=== PATIENT | female | born 1980 | race Caucasian/White ===

== ENCOUNTER → 2016-12-06 | Outpatient (CLI) | payer MEDICAID | LOC: MW.CHFP 14:31 | PROVIDERS: ATTEND Emergency Medicine | DX: R07.89 Other chest pain (principal) | CPT/HCPCS: 93005 ==

== ENCOUNTER 2017-10-28 07:12 | Day surgery (SDC) | payer MEDICAID ==
[~2017-10-28 07:12] MED LIST: Clindamycin Phosphate in D5W 900 MG in Premix Bag 1 BAG IV SCH; Levofloxacin/Dextrose 5%-Water 500 MG in Premix Bag 1 BAG IV ONE; Sodium Chloride 0.9% 10 ML Syringe FLUSH PRN; Sodium Chloride 0.9% 2.5 ML Syringe FLUSH PRN
[2017-10-28] MEDS ORDERED: Fluorescein 5 ML Vial ONE (07:18)
[2017-10-28] MEDS ORDERED: Bupivacaine 0.25% 10 ML SDV ONE (07:19)
[2017-10-28] MEDS ORDERED: Methylene Blue 50 MG/10 ML Ampule ONE (07:19)
[2017-10-28] MEDS ORDERED: Rocuronium 10 MG/ML 10 ML Syringe ONE (08:11)
[2017-10-28] MEDS ORDERED: diphenhydrAMINE 50 MG/ML SDV ONE (08:11)
[2017-10-28] MEDS ORDERED: Dexamethasone 4 MG/ML 5 ML MDV ONE (08:11)
[2017-10-28] MEDS ORDERED: HYDROmorphone 2 MG/ML SDV ONE (08:12)
[2017-10-28] MEDS ORDERED: fentaNYL 250 MCG/5 ML SDV ONE (08:12)
[2017-10-28] MEDS ORDERED: Lidocaine 2% 5 ML SDV ONE (08:12)
[2017-10-28] MEDS ORDERED: Midazolam 1 MG/ML 2 ML SDV ONE (08:12)
[2017-10-28] MEDS ORDERED: Propofol 200 MG/20 ML SDV ONE (08:12)
[2017-10-28] MEDS ORDERED: Scopolamine 1.5 MG Transdermal Patch TRDERM PRN (08:12)
--- NOTE | 2017-10-28 08:12 | PCM.PREANE ---
Preanesthetic Assessment - Anesthesia/Transfusion/Family Hx Anesthesia History: Prior Anesthesia Reaction (agitated upon awakening) Other Type of Anesthesia Reaction Comment: states very combative after Lap Agustina , [place] after Laparoscopy Family History of Anesthesia Reaction: No Transfusion History: No Prior Transfusion(s) Type of Transfusion Reactions: Reports: Unknown - Review of Systems General: No Symptoms Pulmonary: No Symptoms Cardiovascular: No Symptoms Gastrointestinal: No Symptoms Neurological: No Symptoms Other: Reports: None - Physical Assessment NPO Status Date: 10/27/17 Height: 1.62 m Weight: 102.058 kg ASA Class: 2 Mental Status: Alert & Oriented x3 Airway Class: Mallampati = 1 Dentition: Reports: Normal Dentition ROM/Head Extension: Full Lungs: Clear to Auscultation, Normal Respiratory Effort Cardiovascular: Regular Rate, Regular Rhythm - Allergies Allergies/Adverse Reactions: Allergies Allergy/AdvReac Type Severity Reaction Status Date / Time Penicillins Allergy Lightheaded Verified 10/23/17 11:47 ness - Anesthesia Plan Pre-Op Medication Ordered: Other (scop) - Acknowledgements Anesthesia Type Planned: General Anesthesia Pt an Appropriate Candidate for the Planned Anesthesia: Yes Alternatives and Risks of Anesthesia Discussed w Pt/Guardian: Yes Pt/Guardian Understands and Agrees with Anesthesia Plan: Yes PreAnesthesia Questionnaire HEENT History: Reports: Hard of Hearing Other HEENT History: 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: , Spontaneous Musculoskeletal History: Reports: Arthritis, Back Pain, Chronic Neurological History: Reports: Concussion, Migraines Other Neuro History: takes Verapamil for migranes Endocrine/Metabolic History: Reports: Obesity/BMI 30+ - Past Surgical History Head Surgeries/Procedures: Reports: None GI Surgical History: Reports: Cholecystectomy Female Surgical History: Reports: Cystectomy Other Female Surgeries/Procedures: laparoscopy with right ovarian cystectomy - SUBSTANCE USE Smoking Status *Q: Current Every Day Smoker Tobacco Use Within Last Twelve Months: Cigarettes Second Hand Smoke Exposure: Yes Days Per Week of Alcohol Use: 0 Recreational Drug Use History: No - HOME MEDS Home Medications: Home Meds Albuterol [Proair HFA] 2 puff INH Q4H PRN 10/23/17 [History] Ibuprofen 800 mg PO TID 10/23/17 [History] Iron 45 mg PO DAILY 10/23/17 [History] Omeprazole 20 mg PO DAILY PRN 10/23/17 [History] Sucralfate [Carafate] 1 gm PO QID PRN 10/23/17 [History] Verapamil [Calan] 120 mg PO TID PRN 10/23/17 [History] - CURRENT (IN HOUSE) MEDS Current Meds: Current Medications Enoxaparin Sodium (Lovenox) 40 mg SUBCUT Q24H ROYAL Clindamycin Phosphate 900 mg/ (Premix) 50 mls @ 89.286 mls/hr IV ONETIME ROYAL Sodium Chloride (Saline Flush) 10 ml FLUSH ASDIRECTED PRN PRN Reason: Keep Vein Open Sodium Chloride (Saline Flush) 2.5 ml FLUSH ASDIRECTED PRN PRN Reason: Keep Vein Open Discontinued Medications Bupivacaine HCl (Sensorcaine-Mpf 0.25%) Confirm Administered Dose 30 ml .ROUTE .STK-MED ONE Stop: 10/28/17 07:20 Fluorescein Sodium (Ak-Fluor) Confirm Administered Dose 5 ml .ROUTE .STK-MED ONE Stop: 10/28/17 07:19 Levofloxacin/Dextrose 500 mg/ (Premix) 100 mls @ 100 mls/hr IV ONETIME ONE Stop: 10/28/17 05:59 Methylene Blue (Provayblue) Confirm Administered Dose 50 mg .ROUTE .STK-MED ONE Stop: 10/28/17 07:20
[2017-10-28] MEDS: Enoxaparin 40 MG/0.4 ML Syringe SUBCUT SCH (08:35)
[2017-10-28] MEDS ORDERED: Levofloxacin/Dextrose 5%-Water 500 MG in Premix Bag 1 BAG IV ONE (08:45)
[2017-10-28 08:56] LABS: CHLORIDE,CL 106 mmol/L (98-107); SODIUM,NA 140 mmol/L (136-145)
[2017-10-28] MEDS: Lactated Ringers 1,000 ML IV SCH ×2 (09:24→13:08)
[2017-10-28] MEDS ORDERED: Furosemide 40 MG/4 ML VIAL ONE (10:15)
[2017-10-28] MEDS ORDERED: Glycopyrrolate 0.2 MG/ML SDV ONE ×2 (10:16→11:14)
[2017-10-28] MEDS ORDERED: Neostigmine Methylsulfate 1 MG/ML 5 ML Syringe ONE (10:16)
[2017-10-28] MEDS ORDERED: ePHEDrine 50 MG/ML SDV ONE (10:45)
[2017-10-28] MEDS ORDERED: Ondansetron 4 MG/2 ML SDV ONE (11:13)
[2017-10-28] MEDS ORDERED: Acetaminophen/oxyCODONE 325-5 MG Tab PO PRN ×2 (11:34)
[2017-10-28] MEDS ORDERED: Belladonna Alkaloids/Opium 16.2-30 MG Supp RECTAL PRN (11:34)
[2017-10-28] MEDS ORDERED: Ondansetron 4 MG/2 ML SDV IVPUSH PRN (11:34)
[2017-10-28] MEDS ORDERED: Simethicone 80 MG Tab.Chew PO PRN (11:34)
[2017-10-28] MEDS ORDERED: Promethazine 25 MG/ML SDV IM PRN (11:34)
[2017-10-28] MEDS ORDERED: Morphine 2 MG/ML Syringe IVPUSH PRN (11:34)
[2017-10-28] MEDS ORDERED: Morphine 4 MG/ML Syringe IVPUSH PRN (11:34)
[2017-10-28] MEDS ORDERED: Aluminum Hydroxide/Magnesium Hydroxide/Simethicone Susp 30 ML Cup PO PRN (11:34)
--- NOTE | 2017-10-28 12:03 | PCM.OPNOTE ---
- General Post-Op/Procedure Note Date of Surgery/Procedure: 10/28/17 Operative Procedure(s): LAVH/bilateral salpingectomy/right oophorectomy/ cystoscopy/pelvic washings Findings: Enlarged uterus measuring approximately 10 week, distended right ovary with approximately 4-5 cm cyst. Left paratubal cyst. Bilateral patent ureters with cysto Pre Op Diagnosis: Menometrorrhagia with anemia. Right ovarian cyst Post-Op Diagnosis: Same Anesthesia Technique: General ET Tube Primary Surgeon: Leatha Schumacher Room Service Runner: Letitia Burton Pathology: uterus, tubes, right ovary Fluid Replacement, Intraop: 2,400 EBL in mLs: 100 Complications: none known Condition: Good Free Text/Narrative:: [id number]
--- NOTE | 2017-10-28 12:53 | PCM.POSTAN ---
POST ANESTHESIA ASSESSMENT - MENTAL STATUS Mental Status: Alert, Oriented - RESPIRATORY Respiratory Status: Respiratory Rate WNL, Airway Patent, O2 Saturation Stable - CARDIOVASCULAR CV Status: Pulse Rate WNL, Blood Pressure Stable - GASTROINTESTINAL GI Status: No Symptoms - POST OP HYDRATION Hydration Status: Adequate & Stable
--- NOTE | 2017-10-28 18:49 | OR ---
SURGEON: Leatha Schumacehr M.D. DATE OF PROCEDURE: 10/28/2017 PREOPERATIVE DIAGNOSES: 1. Menometrorrhagia. 2. Right ovarian cyst. 3. History of iron-deficiency anemia. POSTOPERATIVE DIAGNOSES: 1. Menometrorrhagia. 2. Right ovarian cyst. 3. History of iron-deficiency anemia. PROCEDURES: Laparoscopic-assisted vaginal hysterectomy, bilateral salpingectomy, right oophorectomy, cystoscopy with pelvic washings. WIRE TAPER: Letitia Burton MD ANESTHESIA: General endotracheal anesthesia. FLUIDS: 2400 mL crystalloid. ESTIMATED BLOOD LOSS: 100 mL. COMPLICATIONS: None known. FINDINGS: Approximately 10-week size uterus, boggy. Distended right ovary with approximately 4 to 5 cm cyst. Left paratubal cyst with cystoscopy at the end the procedure. Bilateral patent ureters noted. DISPOSITION: The patient to PACU, stable. SPECIMEN: Pathology. PROCEDURE IN DETAIL: Amarilys Velasco is a 37-year-old female, who has had ongoing difficulties with menometrorrhagia to the point of having anemia with hemoglobin of approximately 8. She subsequently has been on iron therapy, complicating her history, has history of a pelvic left femoral DVT during her last . The patient has again been experiencing some right leg pain and with imaging study, she was found to have approximately 5 cm right ovarian cyst, which most likely cause her pain. Dopplers of the lower extremities and pelvis were performed with no evidence of DVT. At this juncture, the patient would like to proceed with definitive surgical intervention in the form of hysterectomy and with the recurrence of ovarian cyst, she would like to have both her fallopian tubes removed. She is willing to maintain the left ovary. Findings appears normal at time of surgery as this will give her adequate hormone supplementation, especially given history of DVT that hormone therapy will be difficult treatment option for her. Proper consent obtained. The patient was taken to operating room, where she underwent general endotracheal anesthesia. The patient was placed in modified dorsal position, prepped and draped in the usual sterile fashion. SCDs to the lower extremities. Medeiros to gravity. Received Lovenox prophylactically, and clindamycin and Levaquin prophylactically. Time-out was performed. A speculum was introduced in the vagina. Anterior lip of the cervix was grasped with an Allis clamp. HUMI uterine manipulator was gently placed. Balloon insufflated. All instruments were benign except for the Humberto uterine manipulator. Gloves changed. Attention turned abdominally. Infraumbilically, the patient has had previous laparoscopy; therefore, the region was prepped with 0.25% Marcaine. A 7 mm skin incision was created and a subcutaneous tissue was dissected down to the level of the fascia with the hemostats grasped, the fascia was grasped and entered sharply as well as peritoneum. Trocar was now introduced and pneumoperitoneum was achieved, and the edges of the fascia were secured with 0 Vicryl. Laparoscope was introduced. Peritoneal contents were identified. A left lower quadrant and right lower quadrant 5 mm trocar were placed after prepping the regions with 0.25% Marcaine and creating 5 mm skin incision. The uterus was mobile. There is a right ovarian cyst, now approximately 4 to 5 cm. The pelvic sidewalls on either side inspected, and the ureters were visualized to be placed away from the region of the operative field. Pelvic washings obtained with normal saline. Attention was now turned to performing the left salpingectomy. The fallopian tube is isolated and grasped, tented upwards. Using the LigaSure, salpingectomy was performed to the level of the cornua. At this juncture, it was able to create an utero-ovarian pedicle followed by securing the areas of the broad ligament, mid midportion of the broad ligament including the round ligament, lower portion of broad ligament down to the level of the cardinal ligament. This was able to create a bladder flap, and mobilized the bladder away from the lower uterine segment and cervix. Remainder of the cardinal ligament on this side was now secured with ligature, cauterized and transected down to the level of the uterosacral ligament. Attention was now turned to the patient's right side. The IFP pedicle was isolated with LigaSure, cauterized and transected. Continued to work towards the medial leaf of the broad ligament. Upper portion was safely secured with ligature, cauterized and transected, followed by the midportion including round ligament, lower base of the broad ligament to the level of the cardinal ligament. Bladder flap was created, was completed on this side. The cardinal ligament had been secured, cauterized and transected with two bites down to the level of the uterosacral ligament. Hydrodissection of the bladder peritoneum was performed, who continued to mobilize the bladder away from the lower uterine segment and cervix. At this point, I felt that adequate dissection had occurred prior to securing the pedicles. The pneumoperitoneum was released. Laparoscopic instruments removed. Attention turned vaginally. The legs and knees were slightly flexed. Weighted speculum was introduced in the vagina. Anterior Dalila, cervix grasped with Paulina clamp and sidewall retractors were placed. The cervix now circumscribed Bovie cautery anteriorly and posteriorly as well as side of the cervical mucosa was dissected away from underlying peritoneum. Posteriorly, the peritoneum was tented downward and entered sharply. A longer weighted speculum was replaced with the shorter. Anteriorly, peritoneum was tented upwards and entered sharply into the anterior cul-de-sac. A Bynum was placed to mobilize the bladder away from the operative field. The pedicle on either side was secured using a Humberto clamp, and incorporating the uterosacral ligament, transected and suture ligated with 2-0 Vicryl. Further pedicle on either side was able to be secured and transected with a curved Humberto clamp, transected, and suture ligated. The uterus fallopian tubes, and right ovary were now able to be removed, sent to Pathology for further analysis. The pedicles are inspected. Area of bleeding along the right upper pedicle was able to be secured with Berlisher clamp and [id number] suture. The posterior cuff was oozing somewhat. The patient did receive Lovenox prophylactically; therefore, after securing the uterosacral ligament to the vaginal cuff on either side, also did a running posterior suture with 2-0 Vicryl incorporating the left uterosacral ligament running along the posterior peritoneum to the level of the right uterosacral ligament and then tying the sutures down. The cuff is able to be closed using 0 Vicryl in continuous running locked fashion. The cuff was inspected and found to be hemostatic. The bladder had been released and Medeiros catheter balloon was deflated. The patient had received IV fluorescein and Lasix. The cystoscope was now prepped and introduced in the bladder after removing the catheter. Using normal saline for distention media was able to visualize the dome of the bladder, followed by the trigone of the right ureteral orifice followed by the left ureteral orifice were able to be visualized. Fluorescein dyed urine was seen streaming from them, helping to ensure ureteral patency. The bladder was now drained. Medeiros catheter was replaced. The vaginal cuff once again was inspected and found to be hemostatic. All instruments removed from the vagina. The gloves were changed and attention turned abdominally. Pneumoperitoneum was once again achieved. The laparoscope was reintroduced. The pedicles were closely inspected, well irrigated, and suction dried. The pedicles appeared hemostatic. The pneumoperitoneum was released down to 5 mm, contained inspected pedicles, once again they appeared hemostatic. The pelvis was copiously irrigated, suction dried, and pneumoperitoneum was released. The laparoscopic instruments were removed under direct visualization followed by the right and left quadrant trocars. The laparoscopic infraumbilical trocar was also removed after releasing as much of the pneumoperitoneum as possible. The infraumbilical fascia was closed using 0 Vicryl, and skin edges are closed using 3-0 Monocryl in subcuticular fashion. Sponge, instrument, and needle counts correct x2. The patient have tolerated this procedure well overall. She will go to PACU in stable condition. ELLIE SINGH /[id number] MTDOtis
--- NOTE | 2017-10-28 19:32 | PCM.SN ---
- Free Text/Narrative Note: Pain is well controlled overall--was feeling quite nauseated earlier, but this seems to be improving. Urine output has been just adequate. VS are overall stable. Explained intraoperative findings and procedure. Patient would like catheter out this evening, agreed as long as urine output remains adequate the next couple hours. Abdomen is soft, relatively nontender. Trace pedal edema noted. No CVA tenderness. Continue postoperative cares, labs in the morning.
[2017-10-28] MEDS: Docusate Sodium 100 MG Cap PO SCH (21:10)
[2017-10-28] MEDS: Acetaminophen 500 MG Tab PO PRN (21:10)
[2017-10-29] MEDS: Acetaminophen 500 MG Tab PO PRN (03:22)
[2017-10-29] MEDS: Enoxaparin 40 MG/0.4 ML Syringe SUBCUT SCH (06:00)
[2017-10-29 06:45] LABS: CHLORIDE,CL 105 mmol/L (98-107); SODIUM,NA 140 mmol/L (136-145)
--- NOTE | 2017-10-29 08:04 | PCM.SURGPN ---
- General Info Date of Service: 10/29/17 POD#: 1 Functional Status: Reports: Pain Controlled, Tolerating Diet, Ambulating, Urinating - Review of Systems General: Denies: Fever Cardiovascular: Denies: Chest Pain, Palpitations Gastrointestinal: Reports: Flatus. Denies: Abdominal Pain, Nausea, Vomiting Genitourinary: Denies: Flank Pain Neurological: Reports: No Symptoms Psychiatric: Reports: No Symptoms - Patient Data Vitals - Most Recent: Last Vital Signs Temp 36.5 C 10/29/17 07:41 Pulse 61 10/29/17 04:19 Resp 12 10/29/17 07:41 BP 116/51 L 10/29/17 07:41 Pulse Ox 98 10/29/17 07:41 Weight - Most Recent: 102.058 kg I&O - Last 24 Hours: Intake & Output 10/28/17 10/29/17 10/29/17 22:59 06:59 14:59 Intake Total 1522 1000 Output Total 250 1550 Balance 1272 -550 Lab Results Last 24 Hrs: Laboratory Results - last 24 hr 10/28/17 10/28/17 10/28/17 Range/Units 08:24 08:24 08:24 WBC 6.62 (4.0-11.0) K/uL RBC 4.48 (4.30-5.90) M/uL Hgb 12.9 (12.0-16.0) g/dL Hct 40.6 (36.0-46.0) % MCV 90.6 (80.0-98.0) fL MCH 28.8 (27.0-32.0) pg MCHC 31.8 (31.0-37.0) g/dL RDW Std Deviation 49.5 (28.0-62.0) fl RDW Coeff of Lety 15 (11.0-15.0) % Plt Count 325 (150-400) K/uL MPV 10.30 (7.40-12.00) fL Neut % (Auto) (48.0-80.0) % Lymph % (Auto) (16.0-40.0) % [place] % (Auto) (0.0-15.0) % Eos % (Auto) (0.0-7.0) % Baso % (Auto) (0.0-1.5) % Neut # (Auto) (1.4-5.7) K/uL Lymph # (Auto) (0.6-2.4) K/uL [place] # (Auto) (0.0-0.8) K/uL Eos # (Auto) (0.0-0.7) K/uL Baso # (Auto) (0.0-0.1) K/uL Nucleated RBC % 0.0 /100WBC Nucleated RBCs # 0 K/uL Sodium 140 (136-145) mmol/L Potassium 4.3 (3.5-5.1) mmol/L Chloride 106 (98-107) mmol/L Carbon Dioxide 24.2 (21.0-32.0) mmol/L BUN 11 (7.0-18.0) mg/dL Creatinine 0.7 (0.6-1.0) mg/dL Est Cr Clr Drug Dosing 93.11 mL/min Estimated GFR (MDRD) > 60.0 ml/min Glucose 88 (74-106) mg/dL Calcium 8.7 (8.5-10.1) mg/dL HCG, Qual NEGATIVE (NEG) Blood Type Antibody Screen 10/28/17 10/29/17 10/29/17 Range/Units 08:24 06:25 06:25 WBC 14.29 H (4.0-11.0) K/uL RBC 4.02 L (4.30-5.90) M/uL Hgb 11.7 L (12.0-16.0) g/dL Hct 37.0 (36.0-46.0) % MCV 92.0 (80.0-98.0) fL MCH 29.1 (27.0-32.0) pg MCHC 31.6 (31.0-37.0) g/dL RDW Std Deviation 50.8 (28.0-62.0) fl RDW Coeff of Lety 15 (11.0-15.0) % Plt Count 300 (150-400) K/uL MPV 10.20 (7.40-12.00) fL Neut % (Auto) 82.8 H (48.0-80.0) % Lymph % (Auto) 9.0 L (16.0-40.0) % [place] % (Auto) 8.0 (0.0-15.0) % Eos % (Auto) 0.1 (0.0-7.0) % Baso % (Auto) 0.1 (0.0-1.5) % Neut # (Auto) 11.8 H (1.4-5.7) K/uL Lymph # (Auto) 1.3 (0.6-2.4) K/uL [place] # (Auto) 1.2 H (0.0-0.8) K/uL Eos # (Auto) 0.0 (0.0-0.7) K/uL Baso # (Auto) 0.0 (0.0-0.1) K/uL Nucleated RBC % 0.0 /100WBC Nucleated RBCs # 0 K/uL Sodium 140 (136-145) mmol/L Potassium 4.5 (3.5-5.1) mmol/L Chloride 105 (98-107) mmol/L Carbon Dioxide 29.1 (21.0-32.0) mmol/L BUN 13 (7.0-18.0) mg/dL Creatinine 0.8 (0.6-1.0) mg/dL Est Cr Clr Drug Dosing 81.47 mL/min Estimated GFR (MDRD) > 60.0 ml/min Glucose 106 (74-106) mg/dL Calcium 8.5 (8.5-10.1) mg/dL HCG, Qual (NEG) Blood Type A POSITIVE Antibody Screen NEGATIVE Med Orders - Current: Current Medications Acetaminophen (Tylenol Extra Strength) 1,000 mg PO Q6H PRN PRN Reason: Pain Last Admin: 10/29/17 03:22 Dose: 1,000 mg Al Hydroxide/Mg Hydroxide (Mag-Al Plus) 30 ml PO Q4H PRN PRN Reason: Indigestion Belladonna Alkaloids/Opium (B & O Supprettes No. 15a) 1 supp RECTAL Q4H PRN PRN Reason: Pain Docusate Sodium (Colace) 100 mg PO BID [facility] Last Admin: 10/28/17 21:10 Dose: 100 mg Enoxaparin Sodium (Lovenox) 40 mg SUBCUT Q24H [facility] Last Admin: 10/29/17 06:00 Dose: 40 mg Clindamycin Phosphate 900 mg/ (Premix) 50 mls @ 89.286 mls/hr IV ONETIME [facility] Last Admin: 10/28/17 09:24 Dose: 89.286 mls/hr Lactated Ringer's (Ringers, Lactated) 1,000 mls @ 100 mls/hr IV ASDIRECTED [facility] Last Admin: 10/28/17 13:08 Dose: 100 mls/hr Morphine Sulfate (Morphine) 2 mg IVPUSH Q2H PRN PRN Reason: Pain (severe 7-10) Morphine Sulfate (Morphine) 4 mg IVPUSH Q2H PRN PRN Reason: Pain (severe 7-10) Ondansetron HCl (Zofran) 4 mg IVPUSH Q6H PRN PRN Reason: Nausea/Vomiting Oxycodone/Acetaminophen (Percocet 325-5 Mg) 1 tab PO Q4H PRN PRN Reason: Pain (moderate 4-6) Last Admin: 10/28/17 15:24 Dose: 1 tab Oxycodone/Acetaminophen (Percocet 325-5 Mg) 2 tab PO Q4H PRN PRN Reason: Pain (moderate 4-6) Promethazine HCl (Phenergan) 25 mg IM Q6H PRN PRN Reason: Nausea/Vomiting Scopolamine (Transderm-Scop) 1.5 mg TRDERM Q72H PRN PRN Reason: Nausea/Vomiting Last Admin: 10/28/17 08:45 Dose: 1.5 mg Simethicone (Simethicone) 80 mg PO Q4H PRN PRN Reason: Pain Sodium Chloride (Saline Flush) 10 ml FLUSH ASDIRECTED PRN PRN Reason: Keep Vein Open Sodium Chloride (Saline Flush) 2.5 ml FLUSH ASDIRECTED PRN PRN Reason: Keep Vein Open Discontinued Medications Bupivacaine HCl (Sensorcaine-Mpf 0.25%) Confirm Administered Dose 30 ml .ROUTE .STK-MED ONE Stop: 10/28/17 07:20 Dexamethasone (Dexamethasone) Confirm Administered Dose 20 mg .ROUTE .STK-MED ONE Stop: 10/28/17 08:12 Diphenhydramine HCl (Benadryl) Confirm Administered Dose 50 mg .ROUTE .STK-MED ONE Stop: 10/28/17 08:12 Ephedrine Sulfate (Ephedrine Sulfate) Confirm Administered Dose 50 mg .ROUTE .STK-MED ONE Stop: 10/28/17 10:46 Fentanyl (Sublimaze) Confirm Administered Dose 250 mcg .ROUTE .STK-MED ONE Stop: 10/28/17 08:13 Fluorescein Sodium (Ak-Fluor) Confirm Administered Dose 5 ml .ROUTE .STK-MED ONE Stop: 10/28/17 07:19 Furosemide (Lasix) Confirm Administered Dose 40 mg .ROUTE .STK-MED ONE Stop: 10/28/17 10:16 Glycopyrrolate (Robinul) Confirm Administered Dose 0.4 mg .ROUTE .STK-MED ONE Stop: 10/28/17 10:17 Glycopyrrolate (Robinul) Confirm Administered Dose 0.2 mg .ROUTE .STK-MED ONE Stop: 10/28/17 11:15 Hydromorphone HCl (Dilaudid) Confirm Administered Dose 2 mg .ROUTE .STK-MED ONE Stop: 10/28/17 08:13 Levofloxacin/Dextrose 500 mg/ (Premix) 100 mls @ 100 mls/hr IV ONETIME ONE Stop: 10/28/17 05:59 Last Admin: 10/28/17 08:40 Dose: 100 mls/hr Levofloxacin/Dextrose 500 mg/ (Premix) 100 mls @ 100 mls/hr IV ONETIME ONE Stop: 10/28/17 09:44 Last Admin: 10/28/17 15:08 Dose: Not Given Acetaminophen (Ofirmev) Confirm Administered Dose 100 mls @ as directed IV .STK- MED ONE Stop: 10/28/17 10:05 Lidocaine (Xylocaine-Mpf 2%) Confirm Administered Dose 5 ml .ROUTE .STK-MED ONE Stop: 10/28/17 08:13 Methylene Blue (Provayblue) Confirm Administered Dose 50 mg .ROUTE .STK-MED ONE Stop: 10/28/17 07:20 Midazolam HCl (Versed 1 Mg/Ml) Confirm Administered Dose 2 mg .ROUTE .STK-MED ONE Stop: 10/28/17 08:13 Neostigmine Methylsulfate (Neostigmine) Confirm Administered Dose 5 mg .ROUTE .STK-MED ONE Stop: 10/28/17 10:17 Ondansetron HCl (Zofran) Confirm Administered Dose 4 mg .ROUTE .STK-MED ONE Stop: 10/28/17 11:14 Propofol (Diprivan 20 Ml) Confirm Administered Dose 200 mg .ROUTE .STK-MED ONE Stop: 10/28/17 08:13 Rocuronium [place] (Zemuron) Confirm Administered Dose 100 mg .ROUTE .STK-MED ONE Stop: 10/28/17 08:12 - Exam Wound/Incisions: Healing Well. No: Erythema General: Alert, Oriented Lungs: Normal Respiratory Effort Cardiovascular: Regular Rate, Regular Rhythm GI/Abdominal Exam: Normal Bowel Sounds, Soft Extremities: Pedal Edema (trace). No: José Miguel's Sign Skin: Warm, Dry, Intact Neurological: No New Focal Deficit Psy/Mental Status: Alert, Normal Affect - Problem List & Annotations (1) Menometrorrhagia SNOMED Code(s): 007719186 Code(s): N92.1 - EXCESSIVE AND FREQUENT MENSTRUATION WITH IRREGULAR CYCLE Status: Acute Current Visit: Yes - Problem List Review Problem List Initiated/Reviewed/Updated: Yes - My Orders Last 24 Hours: Active Orders 24 hr Category Date Time Status Patient Status [ADT] Routine ADT 10/28/17 11:35 Active Antiembolic Devices [RC] PER UNIT ROUTINE Care 10/28/17 11:35 Active May Shower [RC] ASDIRECTED Care 10/28/17 11:34 Active Notify Provider Intake and Out [RC] ASDIRECTED Care 10/28/17 11:35 Active Notify Provider Vital Signs [RC] ASDIRECTED Care 10/28/17 11:35 Active Oxygen Therapy [RC] ASDIRECTED Care 10/28/17 11:35 Active RT Incentive Spirometry [RC] Q2HWA Care 10/28/17 11:35 Active Ready for Discharge [RC] PER UNIT ROUTINE Care 10/29/17 08:00 Ordered Up With Assistance [RC] PER UNIT ROUTINE Care 10/28/17 11:35 Active Up ad Linda [RC] PER UNIT ROUTINE Care 10/28/17 11:35 Active Vital Signs [RC] PER UNIT ROUTINE Care 10/28/17 11:35 Active Regular Diet [DIET] Diet 10/28/17 Lunch Active Acetaminophen [Tylenol Extra Strength] Med 10/28/17 18:24 Active 1,000 mg PO Q6H PRN Acetaminophen/oxyCODONE [Percocet 325-5 MG] Med 10/28/17 11:34 Active 1 tab PO Q4H PRN Acetaminophen/oxyCODONE [Percocet 325-5 MG] Med 10/28/17 11:34 Active 2 tab PO Q4H PRN Alum Hydrox/Mag Hydrox/Simeth [Mag-Al Plus] Med 10/28/17 11:34 Active 30 ml PO Q4H PRN Belladonna/Opium [B & O Supprettes No. 15A] Med 10/28/17 11:34 Active 1 supp RECTAL Q4H PRN Docusate Sodium [Colace] Med 10/28/17 21:00 Active 100 mg PO BID Lactated Ringers [Ringers, Lactated] 1,000 ml Med 10/28/17 09:00 Active IV ASDIRECTED Morphine Med 10/28/17 11:34 Active 2 mg IVPUSH Q2H PRN Morphine Med 10/28/17 11:34 Active 4 mg IVPUSH Q2H PRN Ondansetron [Zofran] Med 10/28/17 11:34 Active 4 mg IVPUSH Q6H PRN Promethazine [Phenergan] Med 10/28/17 11:34 Active 25 mg IM Q6H PRN Scopolamine [Transderm-Scop] Med 10/28/17 08:12 Active 1.5 mg TRDERM Q72H PRN Simethicone Med 10/28/17 11:34 Active 80 mg PO Q4H PRN Heat Therapy [OM.PC] Routine Oth 10/28/17 11:34 Ordered Peripheral IV Discontinue [OM.PC] Routine Oth 10/28/17 11:35 Ordered Sequential Compression Device [OM.PC] Per Unit Routine Oth 10/28/17 11:35 Ordered Resuscitation Status Routine Resus Stat 10/28/17 11:34 Ordered Medication Orders Acetaminophen (Tylenol Extra Strength) 1,000 mg PO Q6H PRN PRN Reason: Pain Last Admin: 10/29/17 03:22 Dose: 1,000 mg Admin: 10/28/17 21:10 Dose: 1,000 mg Al Hydroxide/Mg Hydroxide (Mag-Al Plus) 30 ml PO Q4H PRN PRN Reason: Indigestion Belladonna Alkaloids/Opium (B & O Supprettes No. 15a) 1 supp RECTAL Q4H PRN PRN Reason: Pain Docusate Sodium (Colace) 100 mg PO BID [facility] Last Admin: 10/28/17 21:10 Dose: 100 mg Enoxaparin Sodium (Lovenox) 40 mg SUBCUT Q24H [facility] Last Admin: 10/29/17 06:00 Dose: 40 mg Admin: 10/28/17 08:35 Dose: 40 mg Clindamycin Phosphate 900 mg/ (Premix) 50 mls @ 89.286 mls/hr IV ONETIME [facility] Last Admin: 10/28/17 09:24 Dose: 89.286 mls/hr Lactated Ringer's (Ringers, Lactated) 1,000 mls @ 100 mls/hr IV ASDIRECTED [facility] Last Admin: 10/28/17 13:08 Dose: 100 mls/hr Infusion: 10/28/17 13:08 Dose: 100 mls/hr Admin: 10/28/17 09:24 Dose: 100 mls/hr Morphine Sulfate (Morphine) 2 mg IVPUSH Q2H PRN PRN Reason: Pain (severe 7-10) Morphine Sulfate (Morphine) 4 mg IVPUSH Q2H PRN PRN Reason: Pain (severe 7-10) Ondansetron HCl (Zofran) 4 mg IVPUSH Q6H PRN PRN Reason: Nausea/Vomiting Oxycodone/Acetaminophen (Percocet 325-5 Mg) 1 tab PO Q4H PRN PRN Reason: Pain (moderate 4-6) Last Admin: 10/28/17 15:24 Dose: 1 tab Oxycodone/Acetaminophen (Percocet 325-5 Mg) 2 tab PO Q4H PRN PRN Reason: Pain (moderate 4-6) Promethazine HCl (Phenergan) 25 mg IM Q6H PRN PRN Reason: Nausea/Vomiting Scopolamine (Transderm-Scop) 1.5 mg TRDERM Q72H PRN PRN Reason: Nausea/Vomiting Last Admin: 10/28/17 08:45 Dose: 1.5 mg Simethicone (Simethicone) 80 mg PO Q4H PRN PRN Reason: Pain Sodium Chloride (Saline Flush) 10 ml FLUSH ASDIRECTED PRN PRN Reason: Keep Vein Open Sodium Chloride (Saline Flush) 2.5 ml FLUSH ASDIRECTED PRN PRN Reason: Keep Vein Open - Assessment Assessment (Free Text/Narrative):: POD1 status post LAVH/bilateral salpingectomy/right oophorectomy/cystoscopy/ pelvic washings - Plan Plan (Free Text/Narrative):: Doing well overall. VS are stable. Labs reassuring overall. Plan discharge to home today. Discharge instructions reviewed. Follow up at [facility] 2 and 6 weeks. Infection and bleeding warnings reviewed. Patient declines prescription for narcotic pain meds, prefers OTC Tylenol and will start ibuprofen tomorrow (has had prophylactic Lovenox while in hospital given history of DVT)
--- NOTE | 2017-10-29 08:31 | PCM48HPAN ---
Post Anesthesia Note - EVALUATION WITHIN 48HRS OF ANESTHETIC Vital Signs in Normal Range: Yes Patient Participated in Evaluation: Yes Respiratory Function Stable: Yes Airway Patent: Yes Cardiovascular Function Stable: Yes Hydration Status Stable: Yes Pain Control Satisfactory: Yes Nausea and Vomiting Control Satisfactory: Yes Mental Status Recovered: Yes Resp Rate: 12 Temperature: 37.2 C - COMMENTS/OBSERVATIONS Free Text/Narrative:: Patient up walking in room dressed and ready to go home. Denies any complaints and states she feels great ever since catheter discontinued and IV taken out.
[2017-10-29] MEDS: Docusate Sodium 100 MG Cap PO SCH (09:20)
== END 2017-10-29 11:00 | disposition home or self-care (01) ==
LOC: MW.SDS 07:12 → MW.MS 12:28 → MW.SDS 10-29 11:00
PROVIDERS: ATTEND Obstetrics & Gynecology
DX: D27.0 Benign neoplasm of right ovary (principal); N87.9 Dysplasia of cervix uteri, unspecified; N83.8 Other noninflammatory disorders of ovary, fallopian tube and broad ligament; M19.90 Unspecified osteoarthritis, unspecified site; E66.9 Obesity, unspecified; F17.210 Nicotine dependence, cigarettes, uncomplicated; D50.9 Iron deficiency anemia, unspecified; G43.909 Migraine, unspecified, not intractable, without status migrainosus; Z88.0 Allergy status to penicillin; Z86.718 Personal history of other venous thrombosis and embolism; Z68.30 Body mass index [BMI] 30.0-30.9, adult; Z90.49 Acquired absence of other specified parts of digestive tract; Z98.890 Other specified postprocedural states; Z79.899 Other long term (current) drug therapy
CPT/HCPCS: 36415; 58552; 80048; 84703; 85025; 85027; 86850; 86900; 86901; 88104; 88307; A9270; J1100; J1170; J1200; J1650; J1940; J1956; J2250; J2405; J3010; J7120; 00840; J2704

== ENCOUNTER 2022-09-20 09:28 | Day surgery (SDC) | payer MEDICAID ==
[~2022-09-20 09:28] MED LIST changes: -Clindamycin Phosphate in D5W 900 MG in Premix Bag 1 BAG IV SCH; +Lactated Ringers 1,000 ML IV SCH; -Levofloxacin/Dextrose 5%-Water 500 MG in Premix Bag 1 BAG IV ONE; -Sodium Chloride 0.9% 10 ML Syringe FLUSH PRN; -Sodium Chloride 0.9% 2.5 ML Syringe FLUSH PRN
[2022-09-20] MEDS ORDERED: Propofol 200 MG/20 ML SDV ONE ×2 (10:43→11:06)
[2022-09-20] MEDS ORDERED: Lidocaine 2% 5 ML SDV ONE (10:43)
[2022-09-20] MEDS ORDERED: Lactated Ringers 1,000 ML IV SCH (11:45)
== END 2022-09-20 12:05 | disposition home or self-care (01) ==
LOC: MW.SDS 09:28
PROVIDERS: ATTEND Surgery
DX: K29.50 Unspecified chronic gastritis without bleeding (principal); K29.00 Acute gastritis without bleeding; K20.90 Esophagitis, unspecified without bleeding; K52.9 Noninfective gastroenteritis and colitis, unspecified; K31.89 Other diseases of stomach and duodenum; K21.9 Gastro-esophageal reflux disease without esophagitis; J45.909 Unspecified asthma, uncomplicated; F32.A Depression, unspecified; E16.2 Hypoglycemia, unspecified; G43.009 Migraine without aura, not intractable, without status migrainosus; G47.30 Sleep apnea, unspecified; F17.210 Nicotine dependence, cigarettes, uncomplicated; I10 Essential (primary) hypertension; E66.9 Obesity, unspecified; Z88.0 Allergy status to penicillin; Z79.899 Other long term (current) drug therapy; Z98.890 Other specified postprocedural states; Z68.42 Body mass index [BMI] 45.0-49.9, adult
CPT/HCPCS: J2704; J3490; J7120